=== PATIENT | female | born 1940 | race Caucasian/White ===

== ENCOUNTER 2017-03-09 14:07 | Outpatient (CLI) | payer MEDICARE, OTHER | END 2017-03-09 14:08 | disposition home or self-care (01) | LOC: BICMAMMO 14:07 | PROVIDERS: ATTEND Internal Medicine | DX: Z12.31 Encounter for screening mammogram for malignant neoplasm of breast (principal); Z80.49 Family history of malignant neoplasm of other genital organs | CPT/HCPCS: 77063; 77067 ==

== ENCOUNTER 2017-04-30 15:13 | Outpatient (CLI) | payer MEDICARE | END 2017-04-30 15:14 | disposition home or self-care (01) | LOC: BICMAMMO 15:13 | PROVIDERS: ATTEND Internal Medicine Rheumatology | DX: M81.0 Age-related osteoporosis without current pathological fracture (principal); M85.88 Other specified disorders of bone density and structure, other site; Z79.899 Other long term (current) drug therapy | CPT/HCPCS: 77080 ==

== ENCOUNTER 2018-04-05 11:09 | Observation (INO) | payer MEDICARE ==
[2018-04-05 12:12] LABS: #Basophils 0.1 thou/uL (0.0-0.2); #Eosinphils 0.3 thou/uL (0.0-0.7); #Lymphocytes 1.7 thou/uL (1.20-3.40); #Neutrophils 13.6 thou/uL (1.40-6.50); %Basophils 0.4 % (0.0-1.0); %Eosinophils 1.7 % (0.0-10.0); %Lymphocytes 10.3 % (21.0-51.0); %Monocytes 6.3 % (0.0-10.0); %Neutrophils 81.3 % (42.0-75.0); Hemoglobin 15.2 g/dL (12.0-16.0); Mean Corpuscular HGB CONC 32.1 g/dL (32.0-36.0); Mean Corpuscular Hemoglobin 31.1 pg (27.0-31.0); Mean Corpuscular Volume 96.7 fL (78.0-98.0); Mean Platelet Volume 8.2 fL (7.4-10.4); Platelet Count 264 thou/uL (130-400); RBC Distribution Width 12.2 % (11.5-14.5); White Blood Cell (WBC) Count 16.7 thou/uL (4.8-10.8)
--- NOTE | 2018-04-05 12:14 | RAD ---
PORTABLE CHEST ONE VIEW: Date: 04-05-18 Time: 11:41 a.m. History: Cough, congestion. FINDINGS: Comparison is made with exam of 02-21-16. The heart size is normal. The aorta is tortuous. The lungs are well expanded without focal areas of c onsolidation, pneumothoraces, or pleural effusions. There are old right upper rib fractures. IMPRESSION: No radiographic evidence of acute cardiopulmonary process. POS: C
[2018-04-05 12:32] LABS: Bilirubin Small (Negative); Blood, Urine Negative (Negative); Clarity CLEAR (Clear); Glucose, Urine (Dipstick) Negative (Negative); Leukocyte Small (Negative); Nitrite Negative (Negative); Protein, Urine (Dipstick) Negative (Neg-Trace); pH, Urine 5.5 (5.0-9.0)
[2018-04-05 12:37] LABS: Bacteria/HPF Rare-Few HPF (None Seen); Hyaline Casts/LPF 4-6 HYALINE CAST LPF (0-3 Hyaline); Pathc Cast-AUWi Flag 1.01 (0-2.49)
[2018-04-05 12:51] LABS: ALT (SGPT) 24 U/L (8-55); AST (SGOT) 24 U/L (5-34); Albumin 3.7 g/dL (3.4-4.8); Alkaline Phosphatase 113 U/L (40-150); Anion Gap 15 mmol/L (10-20); BUN (Urea Nitrogen) 20 mg/dL (9.8-20.1); Bilirubin, Total 0.6 mg/dL (0.2-1.2); Calc. Creatinine Clearance 0 mL/min (70-130); Calcium 9.6 mg/dL (7.8-10.44); Carbon Dioxide 22 mmol/L (23-31); Chloride 101 mmol/L (98-107); Estimated GFR-MDRD 67; Globulin 3.7 g/dL (2.4-3.5); Glucose 92 mg/dL (83-110); Potassium 4.1 mmol/L (3.5-5.1); Protein, Total 7.4 g/dL (6.0-8.3); Sodium 134 mmol/L (136-145)
[2018-04-05 12:54] LABS: RBC/HPF None Seen HPF (0-3)
[2018-04-05] MEDS ORDERED: cefTRIAXone\\ROCEPHIN 2 GM VIAL ONE (13:27)
[2018-04-05] MEDS ORDERED: Azithromycin 500 MG VIAL ONE (13:28)
[2018-04-05] MEDS ORDERED: cefTRIAXone\\ROCEPHIN 2 GM in Sodium Chloride 0.9% 100 ML IVPB SCH (13:30)
[2018-04-05] MEDS ORDERED: Azithromycin 500 MG in Sodium Chloride 0.9% 250 ML 250 ML IVPB SCH (14:00)
[2018-04-05] MEDS ORDERED: Acetaminophen 500 MG TAB ONE (14:28)
[2018-04-05] MEDS ORDERED: Acetaminophen 650 MG Suppository PR PRN (14:28)
[2018-04-05] MEDS ORDERED: Senokot S 8.6-50 MG TAB PO PRN (14:28)
[2018-04-05] MEDS ORDERED: Acetaminophen 325 MG TAB PO PRN (14:28)
--- NOTE | 2018-04-05 15:00 | HP ---
PRIMARY CARE PROVIDER: Carola Lewis MD CHIEF COMPLAINT: Cough. HISTORY OF PRESENT ILLNESS: Ms. Mosqueda is a pleasant 78-year-old lady, who was seen at [facility] on April 05, 2018. Nine days ago, she returned from [place] after spending a week in [place]. She had three companions, all of whom are doing well at this time. Two days after returning, she started having cough. She reports that the cough is productive of sputum that is greenish in color. She denies any nausea or vomiting. She reports lightheadedness. She denies any chest pain. She reports wheezing. She reports feeling weak and wobbly over the last day. She reports that she does not have any appetite over the last one and half days. She tried Mucinex and Claritin at home, but continued to be symptomatic. She also reports sneezing and body aches. She also reports headache. REVIEW OF SYSTEMS: All other systems reviewed and found to be negative. PAST MEDICAL HISTORY: Hypothyroidism, dyslipidemia, and osteopenia. SURGICAL HISTORY: Bilateral wrist surgery and hysterectomy. SOCIAL HISTORY: The patient drinks two glasses of wine a day. She denies current tobacco use or recreational drug use. FAMILY HISTORY: Her father from a myocardial infarction. CODE STATUS: I discussed her code status. She is full code. Her daughter, Elizabeth Mcclure is surrogate decision maker. ALLERGIES: NO KNOWN DRUG ALLERGIES. CURRENT MEDICATIONS: These need to be clarified, the patient reports that she takes a medication for cholesterol, medication for thyroid replacement, and vitamin D. PHYSICAL EXAMINATION: GENERAL: On examination, Ms. Mosqueda is awake and alert, not in acute distress. VITAL SIGNS: Blood pressure is 122/63, pulse 87, respiratory rate 20, and oxygen saturation 96% on 2 L of oxygen. Temperature is 100.7 degrees Fahrenheit. Earlier, she had respiratory rate as high as 24 in the emergency room. EYES: No scleral icterus, no conjunctival pallor. ENT: Dry mucosal membranes, no oropharyngeal erythema or exudates. NECK: Supple, nontender, trachea is midline. RESPIRATORY: Accessory muscles of breathing are mildly active. Chest wall movements are symmetric bilaterally. LUNG EXAMINATION: Reveals occasional expiratory wheeze. CARDIOVASCULAR: S1 and S2 are heard, regular. Peripheral pulses palpable. No carotid bruit. No pericardial rub. ABDOMEN: Soft, nontender, bowel sounds heard, no hepatomegaly, no splenomegaly. NEUROLOGIC: Cranial nerves 2 through 12 intact, deep tendon reflexes 2+. MUSCULOSKELETAL: Power is 5/5 in all four extremities. SKIN: No rashes or subcutaneous nodules. LYMPHATIC: No cervical lymphadenopathy. PSYCHIATRIC: Normal mood, normal affect, the patient is oriented to person, place, and time. LABORATORY DATA: Ms. Mosqueda's labs and investigations were reviewed. Had a chest x-ray, which does not show any pulmonary infiltrates. She has leukocytosis with 16,700 white cells, of which 81.3% are neutrophils, normal hemoglobin, normal platelet count. Decreased sodium of 134, normal potassium. Unremarkable LFTs, normal lactic acid and urinalysis that is positive for ketones, bilirubin, and small amount of leukocyte esterase. ASSESSMENT AND PLAN: Ms. Mosqueda is a pleasant 78-year-old lady, who was seen at [facility] on April 05, 2018. Her problem list includes: 1. Sepsis: Ms. Mosqueda is presenting with sepsis, most likely source of infection is in the upper respiratory tract. Her chest x-ray is negative, so this could be a bronchitis or it could be early pneumonia that is not yet shown on the chest x-ray. She will be admitted to the hospital for further management including fluid resuscitation and antibiotics. She has received ceftriaxone and azithromycin in the emergency room, which I will continue. 2. Dehydration: The patient is clinically dehydrated. We will provide intravenous fluids. 3. Hypothyroidism: We will continue replacement therapy once doses clarified. 4. Dyslipidemia: We will continue medications once doses clarified. 5. Osteopenia: We will continue vitamin D. Many thanks for allowing me to participate in your patient's care. Please feel free to contact me with any questions or concerns. LEVEL OF RISK: Moderate. LEVEL OF COMPLEXITY: Moderate Job ID: [id number]
[2018-04-05 17:36] VITALS: BMI 21.7
[2018-04-05] MEDS: cefTRIAXone\\ROCEPHIN 1 GM in Sodium Chloride 0.9% 100 ML IVPB SCH (17:54)
[2018-04-05] MEDS: Sodium Chloride 0.9% 1,000 ML IV SCH (18:04)
[2018-04-05] MEDS ORDERED: Pravastatin Sodium 40 MG TAB PO SCH (21:33)
[2018-04-06] MEDS: Sodium Chloride 0.9% 1,000 ML IV SCH ×2 (03:40→13:27)
[2018-04-06 04:50] LABS: #Basophils 0.1 thou/uL (0.0-0.2); #Eosinphils 0.2 thou/uL (0.0-0.7); #Lymphocytes 1.9 thou/uL (1.20-3.40); #Monocytes 0.7 thou/uL (0.11-0.59); #Neutrophils 7.1 thou/uL (1.40-6.50); %Basophils 0.6 % (0.0-1.0); %Eosinophils 1.6 % (0.0-10.0); %Lymphocytes 18.9 % (21.0-51.0); %Monocytes 7.2 % (0.0-10.0); %Neutrophils 71.7 % (42.0-75.0); Hemoglobin 12.4 g/dL (12.0-16.0); Mean Corpuscular Hemoglobin 30.5 pg (27.0-31.0); Mean Corpuscular Volume 95.4 fL (78.0-98.0); Mean Platelet Volume 7.9 fL (7.4-10.4); Platelet Count 220 thou/uL (130-400); Red Blood Cell (RBC) Count 4.07 mill/uL (4.20-5.40); White Blood Cell (WBC) Count 9.9 thou/uL (4.8-10.8)
[2018-04-06 05:14] LABS: Anion Gap 11 mmol/L (10-20); BUN (Urea Nitrogen) 13 mg/dL (9.8-20.1); Calc. Creatinine Clearance 68 mL/min (70-130); Calcium 8.2 mg/dL (7.8-10.44); Carbon Dioxide 20 mmol/L (23-31); Chloride 112 mmol/L (98-107); Estimated GFR-MDRD 83; Glucose 95 mg/dL (83-110); Sodium 139 mmol/L (136-145)
[2018-04-06] MEDS: Levothyroxine Sodium 50 MCG TAB PO SCH (06:19)
[2018-04-06] MEDS ORDERED: Benzonatate 100 MG CAP PO PRN (09:15)
[2018-04-06] MEDS: guaiFENesin ER 600 MG TAB PO PRN (10:13)
[2018-04-06] MEDS: Enoxaparin Sodium 40 MG/0.4 ML SYRINGE SC SCH (10:44)
[2018-04-06] MEDS ORDERED: Azithromycin 500 MG in Sodium Chloride 0.9% 250 ML 250 ML IVPB SCH (14:00)
[2018-04-06] MEDS: cefTRIAXone\\ROCEPHIN 1 GM in Sodium Chloride 0.9% 100 ML IVPB SCH (15:46)
--- NOTE | 2018-04-06 16:13 | PDOC.PN ---
- Subjective Encounter Start Date: 04/06/18 Encounter Start Time: 16:12 Pt seen for followup re: acute bronchitis. feels slightly better. - Objective Resuscitation Status - Order Detail: 04/05/18 14:28 Resuscitation Status Routine Resuscitation Status: FULL: Full Resuscitation Discussed with: patient and daughter Elizabeth Mcclure Vital Signs & Weight: Vital Signs (12 hours) Temp Pulse Resp BP Pulse Ox 04/06/18 13:00 99.8 F H 79 18 92/46 L 100 04/06/18 11:47 66 20 99 04/06/18 11:38 97 04/06/18 08:45 97.7 F 80 18 100/62 97 04/06/18 06:59 70 18 95 04/06/18 04:18 98.4 F 67 16 94/51 L 99 Weight Admit Weight 143 lb 1.6 oz Weight 143 lb 1.6 oz I&O: 04/05/18 04/06/18 04/07/18 06:59 06:59 06:59 Intake Total 1902 1307 Balance 1902 1307 Result Diagrams: 04/06/18 04:16 04/06/18 04:16 Phys Exam - Physical Examination Constitutional: NAD HEENT: moist MMs Neck: supple Respiratory: clear to auscultation bilateral Cardiovascular: RRR Gastrointestinal: soft Neurological: moves all 4 limbs Psychiatric: normal affect Dx/Plan (1) Acute bronchitis Code(s): J20.9 - ACUTE BRONCHITIS, UNSPECIFIED Status: Acute Comment: Improving, continue oxygen, bronchodilators and antibiotics. Add steroids. (2) Dyslipidemia Code(s): E78.5 - HYPERLIPIDEMIA, UNSPECIFIED Status: Chronic Comment: continue statin (3) Hypothyroidism Code(s): E03.9 - HYPOTHYROIDISM, UNSPECIFIED Status: Chronic Comment: continue synthroid (4) Sepsis Code(s): A41.9 - SEPSIS, UNSPECIFIED ORGANISM Status: Resolved - Plan * . Review of Systems - Review of Systems Respiratory: Cough, Dry. negative: Shortness of Breath, Hemoptysis, SOB with Excertion, Pleuritic Pain, Sputum, Wheezing Cardiovascular: negative: chest pain, palpitations, orthopnea, paroxysmal nocturnal dyspnea, edema, light headedness, other - Medications/Allergies Allergies/Adverse Reactions: Allergies Allergy/AdvReac Type Severity Reaction Status Date / Time No Known Allergies Allergy Unverified 04/05/18 13:16 Medications: Current Medications Acetaminophen (Tylenol) 650 mg PO Q4H PRN PRN Reason: Headache/Fever/Mild Pain (1-3) Acetaminophen (Tylenol) 650 mg CO Q4H PRN PRN Reason: Headache/Fever/Mild Pain (1-3) Albuterol/Ipratropium (Duoneb) 3 ml NEB [id number] [facility] Last Admin: 04/06/18 11:47 Dose: 3 ml Albuterol/Ipratropium (Duoneb) 3 ml NEB Q6H PRN PRN Reason: SOB &/or Wheezing Benzonatate (Tessalon) 100 mg PO BID PRN PRN Reason: Cough Last Admin: 04/06/18 10:42 Dose: 100 mg Enoxaparin Sodium (Lovenox) 40 mg SC 0900 [facility] Last Admin: 04/06/18 10:44 Dose: Not Given Guaifenesin (Mucinex) 600 mg PO BID PRN PRN Reason: Cough Last Admin: 04/06/18 10:13 Dose: 600 mg Sodium Chloride (Normal Saline 0.9%) 1,000 mls @ 100 mls/hr IV .Q10H [facility] Last Admin: 04/06/18 13:27 Dose: 1,000 mls Azithromycin 500 mg/ Sodium (Chloride) 250 mls @ 250 mls/hr IVPB 1400 [facility] Last Admin: 04/06/18 13:23 Dose: 250 mls Ceftriaxone Sodium 1 gm/ (Sodium Chloride) 100 mls @ 200 mls/hr IVPB 1600 [facility] Last Admin: 04/06/18 15:46 Dose: 100 mls Levothyroxine Sodium (Synthroid) 50 mcg PO 0600 [facility] Last Admin: 04/06/18 06:19 Dose: 50 mcg Pravastatin Sodium (Pravachol) 80 mg PO HS [facility] Senna/Docusate Sodium (Senokot S) 2 tab PO BIDPRN PRN PRN Reason: Constipation
[2018-04-06] MEDS ORDERED: predniSONE 20 MG TAB PO SCH (16:15)
[2018-04-06] MEDS ORDERED: Ibuprofen 200 MG TAB PO PRN (17:59)
[2018-04-06] MEDS ORDERED: Ketorolac Tromethamine 30 MG/ML VIAL IVP PRN (18:00)
[2018-04-06] MEDS ORDERED: Pravastatin Sodium 40 MG TAB PO SCH (21:00)
[2018-04-07] MEDS: Sodium Chloride 0.9% 1,000 ML IV SCH (02:10)
[2018-04-07 03:56] LABS: #Eosinphils 0.4 thou/uL (0.0-0.7); #Lymphocytes 2.1 thou/uL (1.20-3.40); #Monocytes 0.7 thou/uL (0.11-0.59); #Neutrophils 4.2 thou/uL (1.40-6.50); %Basophils 0.5 % (0.0-1.0); %Eosinophils 4.8 % (0.0-10.0); %Lymphocytes 28.1 % (21.0-51.0); %Monocytes 9.4 % (0.0-10.0); %Neutrophils 57.2 % (42.0-75.0); Mean Corpuscular HGB CONC 32.5 g/dL (32.0-36.0); Mean Corpuscular Hemoglobin 31.1 pg (27.0-31.0); Mean Corpuscular Volume 95.5 fL (78.0-98.0); Mean Platelet Volume 7.5 fL (7.4-10.4); Platelet Count 219 thou/uL (130-400); RBC Distribution Width 11.9 % (11.5-14.5); Red Blood Cell (RBC) Count 3.87 mill/uL (4.20-5.40); White Blood Cell (WBC) Count 7.3 thou/uL (4.8-10.8)
[2018-04-07 04:14] LABS: Anion Gap 12 mmol/L (10-20); BUN (Urea Nitrogen) 7 mg/dL (9.8-20.1); Calc. Creatinine Clearance 69 mL/min (70-130); Calcium 8.2 mg/dL (7.8-10.44); Carbon Dioxide 19 mmol/L (23-31); Chloride 116 mmol/L (98-107); Estimated GFR-MDRD 85; Glucose 97 mg/dL (83-110); Potassium 3.5 mmol/L (3.5-5.1); Sodium 143 mmol/L (136-145)
[2018-04-07] MEDS: Levothyroxine Sodium 50 MCG TAB PO SCH (05:32)
[2018-04-07] MEDS: guaiFENesin ER 600 MG TAB PO PRN (05:33)
[2018-04-07] MEDS: Enoxaparin Sodium 40 MG/0.4 ML SYRINGE SC SCH ×2 (08:55→08:58)
[2018-04-07] MEDS: predniSONE 50 MG TAB PO SCH ×2 (08:56→08:59)
[2018-04-07] MEDS ORDERED: Ascorbic Acid 500 mg Chewable Tablet PO SCH (09:00)
[2018-04-07] MEDS ORDERED: BOSWELLIA SERRA PO SCH (09:00)
[2018-04-07] MEDS ORDERED: GLUCOSAMINE PO SCH (09:00)
[2018-04-07] MEDS ORDERED: Stress 600 With Zinc 1 TAB PO SCH (09:00)
[2018-04-07] MEDS ORDERED: D3 PO SCH (09:00)
[2018-04-07 09:46] VITALS: BP 115/60; TEMP 98.4
--- NOTE | 2018-04-07 23:57 | DIS ---
DATE OF ADMISSION: 04/05/2018 DATE OF DISCHARGE: 04/07/2018 PRIMARY CARE PROVIDER: Carola Lewis MD DISCHARGE DIAGNOSES: 1. Sepsis. 2. Acute bronchitis. 3. Dehydration. CONDITION OF PATIENT ON THE DAY OF DISCHARGE: Stable. I assessed Ms. Mosqueda on the day of discharge. She denies any chest pain or shortness of breath. Cough is better. Vital signs are stable. S1 and S2 are heard, regular. Lungs are clear to auscultation bilaterally. DISCHARGE MEDICATIONS: 1. Vitamin C 500 mg daily. 2. Vitamin D3 of 2000 units daily. 3. Glucosamine-D3 one tablet daily. 4. Synthroid 50 mcg daily. 5. Pravastatin 80 mg at bedtime. 6. Vitamin B complex one tablet daily. 7. Proventil 2 puffs every 6 hours as needed. 8. Tessalon 100 mg 2 times a day as needed. 9. Cefdinir 300 mg 2 times a day for 10 days. HOSPITAL COURSE: Ms. Mosqueda is a pleasant 78-year-old lady, who was admitted to [facility] for sepsis and dehydration on April 05, 2018. Please refer to my history and physical note dated April 05, 2018, for further details. She was diagnosed with acute bronchitis. She was treated with oxygen, bronchodilators, and antibiotics. She was also briefly started on steroids, but she did not wish to continue steroids. She improved clinically. She is being discharged home in a stable condition. On the day of discharge, she has white count 7300, hemoglobin 12, platelet count 219,000. Sodium 143, potassium 3.5, and creatinine 0.67. Many thanks for allowing me to participate in your patient's care. Please feel free to contact me with any questions or concerns. DISCHARGE DESTINATION: Home. Job ID: [id number]
== END 2018-04-07 12:09 | disposition home or self-care (01) ==
LOC: ERS 11:09 → ONC 17:12 → INTOOBSV 17:12
PROVIDERS: ADMIT Internal Medicine; ATTEND Internal Medicine
DX: A41.9 Sepsis, unspecified organism (principal); J20.9 Acute bronchitis, unspecified; E86.0 Dehydration; E78.5 Hyperlipidemia, unspecified; E03.9 Hypothyroidism, unspecified; M85.80 Other specified disorders of bone density and structure, unspecified site; Z79.899 Other long term (current) drug therapy
CPT/HCPCS: 71045; 80048 ×2; 80061; 80074; 82306; 83605; 84439; 85025 ×2; 87040; 87804 ×2; 94640 ×3; 96361 ×4; 96365; 96367; 96376; 97139; 99285; G0378; 36415; 80053; 81003; 81015; 84443; J0456; J0696; J1650; J7050; J7506; J7620

== ENCOUNTER 2018-11-03 13:26 | Outpatient (CLI) | payer MEDICARE ==
--- NOTE | 2018-11-03 14:25 | MMO ---
Bilateral MAMMO Bilat Screen [facility]. CLINICAL HISTORY: Patient is 78 years old and is seen for screening. The patient has no family history of breast cancer. The patient has a history of cervical cancer at age 22. The patient has a history of left Cyst Aspiration in - benign. VIEWS: The views performed were: bilateral craniocaudal with tomosynthesis and bilateral mediolateral oblique with tomosynthesis. FILMS COMPARED: The present examination has been compared to prior imaging studies performed at [facility] on 04/29/2013, 05/11/2014, 11/07/2015 and 03/09/2017. MAMMOGRAM FINDINGS: The breasts are heterogeneously dense, which could obscure a lesion on mammography. There are stable benign appearing calcifications seen in both breasts. There are no suspicious masses, suspicious calcifications, or new areas of architectural distortion. IMPRESSION: THERE IS NO MAMMOGRAPHIC EVIDENCE OF MALIGNANCY. A ROUTINE FOLLOW-UP MAMMOGRAM IN 1 YEAR IS RECOMMENDED. THE RESULTS OF THIS EXAM WERE SENT TO THE PATIENT. ACR BI-RADS Category 2 - Benign finding MAMMOGRAPHY NOTE: 1. A negative mammogram report should not delay a biopsy if a dominant of clinically suspicious mass is present. 2. Approximately 10% to 15% of breast cancers are not detected by mammography. 3. Adenosis and dense breasts may obscure an underlying neoplasm. Reported by: ZULMA WALKER MD Electonically Signed: [id number]
== END 2018-11-03 13:27 | disposition home or self-care (01) ==
LOC: BICMAMMO 13:26
PROVIDERS: ATTEND Internal Medicine
DX: Z12.31 Encounter for screening mammogram for malignant neoplasm of breast (principal); Z85.41 Personal history of malignant neoplasm of cervix uteri
CPT/HCPCS: 77063; 77067

== ENCOUNTER 2019-11-25 09:38 | Outpatient (CLI) | payer MEDICARE ==
--- NOTE | 2019-11-25 10:39 | BD ---
EXAM: DEXA bone density examination HISTORY: Osteoporosis screening COMPARISON: None FINDINGS: L1--bone mineral density 0.729 g/sq cm; T score -2.4. Z score 0.1 L2--bone mineral density 0.852 g/sq cm; T score -1.6; Z score 1.1 L3--bone mineral density 0.964 g/sq cm; T score -1.1; Z score 1.8 L4--bone mineral density 0.903 g/sq cm; T score -1.4, Z score 1.5 Total L1-L4--bone mineral density 0.867 g/sq cm; T score -1.6, Z score 1.1 Left femoral neck--bone mineral density0.647; T score -1.8, Z score 0.6 Total proximal left femur--bone mineral density 0.810; T score -1.1, Z score 1.1 The FRAX fracture risk estimated was not assessed due to a report of treated osteoporosis IMPRESSION: Based on the WHO criteria, the patient's bone mineral density is consideredOsteopenic. T he patient is at moderate risk for fracture.
--- NOTE | 2019-11-25 13:54 | MMO ---
Bilateral MAMMO Bilat Screen [facility]. CLINICAL HISTORY: Patient is 79 years old and is seen for screening. The patient has no family history of breast cancer. The patient has a history of cervical cancer at age 22. The patient has a history of left Cyst Aspiration in - benign. VIEWS: The views performed were: bilateral craniocaudal with tomosynthesis and bilateral mediolateral oblique with tomosynthesis. FILMS COMPARED: The present examination has been compared to prior imaging studies performed at [facility] on 05/11/2014, 11/07/2015, 03/09/2017 and 11/03/2018. This study has been interpreted with the assistance of computer-aided detection. MAMMOGRAM FINDINGS: The breasts are heterogeneously dense, which could obscure a lesion on mammography. Benign calcifications are noted bilaterally. There are no suspicious masses, suspicious calcifications, or new areas of architectural distortion. IMPRESSION: THERE IS NO MAMMOGRAPHIC EVIDENCE OF MALIGNANCY. A ROUTINE FOLLOW-UP MAMMOGRAM IN 1 YEAR IS RECOMMENDED. THE RESULTS OF THIS EXAM WERE SENT TO THE PATIENT. ACR BI-RADS Category 2 - Benign finding MAMMOGRAPHY NOTE: 1. A negative mammogram report should not delay a biopsy if a dominant of clinically suspicious mass is present. 2. Approximately 10% to 15% of breast cancers are not detected by mammography. 3. Adenosis and dense breasts may obscure an underlying neoplasm. Reported by: PRINCE AN MD Electonically Signed: [id number]
== END 2019-11-25 09:39 | disposition home or self-care (01) ==
LOC: BICMAMMO 09:38
PROVIDERS: ATTEND Internal Medicine
DX: Z12.31 Encounter for screening mammogram for malignant neoplasm of breast (principal); Z78.0 Asymptomatic menopausal state; M85.89 Other specified disorders of bone density and structure, multiple sites; Z85.41 Personal history of malignant neoplasm of cervix uteri; Z91.89 Other specified personal risk factors, not elsewhere classified
CPT/HCPCS: 77063; 77067; 77080

== ENCOUNTER 2020-04-12 09:28 | Outpatient (CLI) | payer MEDICARE | END 2020-04-12 09:29 | disposition home or self-care (01) | LOC: BICRAD 09:28 | PROVIDERS: ATTEND Internal Medicine | DX: R06.00 Dyspnea, unspecified (principal) | CPT/HCPCS: 71046 ==

== ENCOUNTER 2020-12-20 08:15 | Outpatient (CLI) | payer MEDICARE | END 2020-12-20 08:16 | disposition home or self-care (01) | LOC: BICMAMMO 08:15 | PROVIDERS: ATTEND Internal Medicine | DX: Z12.31 Encounter for screening mammogram for malignant neoplasm of breast (principal); Z85.41 Personal history of malignant neoplasm of cervix uteri | CPT/HCPCS: 77063; 77067 ==

== ENCOUNTER 2022-01-13 08:17 | Outpatient (CLI) | payer MEDICARE | END 2022-01-13 08:18 | disposition home or self-care (01) | LOC: BICMAMMO 08:17 | PROVIDERS: ATTEND Internal Medicine | DX: Z12.31 Encounter for screening mammogram for malignant neoplasm of breast (principal); Z13.820 Encounter for screening for osteoporosis; M81.0 Age-related osteoporosis without current pathological fracture; Z78.0 Asymptomatic menopausal state; Z80.3 Family history of malignant neoplasm of breast; Z85.41 Personal history of malignant neoplasm of cervix uteri; Z98.890 Other specified postprocedural states | CPT/HCPCS: 77063; 77067; 77080 ==

== ENCOUNTER 2023-01-29 11:28 | Outpatient (CLI) | payer MEDICARE | END 2023-01-29 11:29 | disposition home or self-care (01) | LOC: BICMAMMO 11:28 | PROVIDERS: ATTEND Internal Medicine Rheumatology | DX: M81.0 Age-related osteoporosis without current pathological fracture (principal); M85.89 Other specified disorders of bone density and structure, multiple sites | CPT/HCPCS: 77080 ==

== ENCOUNTER 2023-04-20 08:35 | Outpatient (CLI) | payer MEDICARE | END 2023-04-20 08:36 | disposition home or self-care (01) | LOC: BICMAMMO 08:35 | PROVIDERS: ATTEND Internal Medicine | DX: Z12.31 Encounter for screening mammogram for malignant neoplasm of breast (principal); Z85.41 Personal history of malignant neoplasm of cervix uteri; Z80.3 Family history of malignant neoplasm of breast | CPT/HCPCS: 77063; 77067 ==

== ENCOUNTER 2024-06-23 08:33 | Outpatient (CLI) | payer MEDICARE | END 2024-06-23 08:34 | disposition home or self-care (01) | LOC: BICMAMMO 08:33 | PROVIDERS: ATTEND Internal Medicine | DX: Z12.31 Encounter for screening mammogram for malignant neoplasm of breast (principal); Z80.3 Family history of malignant neoplasm of breast; Z85.41 Personal history of malignant neoplasm of cervix uteri | CPT/HCPCS: 77063; 77067 ==

== ENCOUNTER 2024-11-23 08:00 | Outpatient (CLI) | payer MEDICARE ==
[2024-11-23 08:48] LABS: Estimated GFR - POC 62.0
[2024-11-23] MEDS ORDERED: Iopamidol 370 76% 100 ML VIAL ONE (15:45)
== END 2024-11-23 08:01 | disposition home or self-care (01) ==
LOC: CT 08:00
PROVIDERS: ATTEND Internal Medicine
DX: R91.8 Other nonspecific abnormal finding of lung field (principal); K80.20 Calculus of gallbladder without cholecystitis without obstruction; J98.4 Other disorders of lung
CPT/HCPCS: 36415; 71260; 82565; Q9967

== ENCOUNTER 2024-11-24 08:37 | Outpatient (CLI) | payer MEDICARE | END 2024-11-24 08:38 | disposition home or self-care (01) | LOC: BICMAMMO 08:37 | PROVIDERS: ATTEND Physician Assistant | DX: M81.0 Age-related osteoporosis without current pathological fracture (principal); M85.89 Other specified disorders of bone density and structure, multiple sites | CPT/HCPCS: 77080 ==